=== PATIENT | female | born 1990 | race Caucasian/White ===

== ENCOUNTER 2019-02-10 09:52 | Inpatient (IN) ==
[2019-02-10] MEDS ORDERED: Oxytocin 20 units/ LR 1000 mL 20 UNIT/1,000 ML BAG IVC ONE (10:23)
[2019-02-10] MEDS ORDERED: Famotidine 20 MG/2 ML VIAL IVP ONE (10:23)
[2019-02-10] MEDS ORDERED: Ringers Solution, Lactated 1,000 ML IVC ONE (10:23)
[2019-02-10] MEDS ORDERED: Metoclopramide 10 MG/2 ML VIAL IVP ONE (10:23)
[2019-02-10] MEDS ORDERED: CeFAZolin Premix DUPLEX 2,000 MG/50 ML BAG IVPB ONE (10:23)
[2019-02-10] MEDS ORDERED: Ringers Solution, Lactated 1,000 ML IVC SCH (10:30)
[2019-02-10 10:56] LABS: Basophils % 0.2 %; Eosinophils % 0.4 %; Immature Granulocytes % 0.9 % (0-4); Lymphocytes # 1.7 K/mcL (0.6-4.6); Lymphocytes % 18.8 %; Mean Corpuscular HGB Conc 36.1 g/dL (31.6-35.5); Mean Corpuscular Hemoglobin 31.9 pg (28.0-33.3); Mean Corpuscular Volume 88.2 fL (83.0-100.0); Mean Platelet Volume 10.2 fL (9.4-12.4); Monocytes # 0.8 K/mcL (0.0-1.3); Monocytes % 8.3 %; Neutrophils # 6.5 K/mcL (1.6-8.9); Platelet Count 187 K/mcL (140-400); Red Blood Count 4.08 M/mcL (3.82-4.97); Segmented Neutrophils % 71.4 %; White Blood Count 9.1 K/mcL (4.3-11.1)
[2019-02-10 11:01] LABS: Amphetamine Screen,Urine Negative ng/mL (Cutoff=1000); Barbiturate Screen,Urine Negative ng/mL (Cutoff=200); Benzodiazepines Screen,Urine Negative ng/mL (Cutoff=200); Cannabinoid Screen,Urine Negative ng/mL (Cutoff = 50); Cocaine Screen,Urine Negative ng/mL (Cutoff= 300); Opiate Screen,Urine Negative ng/mL (Cutoff=300); Phencyclidine Screen,Urine Negative ng/mL (Cutoff=25)
[2019-02-10] MEDS ORDERED: Azithromycin 500 MG in 0.9 % Sodium Chloride 250 ML IVPB ONE (11:27)
[2019-02-10] MEDS ORDERED: *HR* HYDROmorphone (PF) 1 MG/ML SYRINGE IVP PRN ×2 (11:44)
[2019-02-10] MEDS ORDERED: Ondansetron 4 MG/2 ML VIAL IVP ONE (11:44)
[2019-02-10] MEDS ORDERED: *HR* Meperidine 25 MG/ML SYRINGE IVP PRN (11:44)
[2019-02-10] MEDS ORDERED: *HR* Promethazine 25 MG/ML VIAL IVP PRN (11:44)
[2019-02-10] MEDS ORDERED: *HR* OxyCODONE Immed Rel 5 MG TABLET PO PRN (11:44)
[2019-02-10] MEDS ORDERED: *HR* FentaNYL (PF) 100 MCG/2 ML VIAL ONE (11:53)
[2019-02-10] MEDS ORDERED: *HR* Morphine Sulfate/PF 10 MG/10 ML AMPUL ONE (11:53)
[2019-02-10] MEDS ORDERED: *HR* Phenylephrine 10 MG/ML VIAL ONE (11:56)
[2019-02-10] MEDS ORDERED: *HR* Oxytocin 10 UNIT/ML VIAL IM ONE ×2 (11:57→13:14)
[2019-02-10] MEDS ORDERED: Sennosides 8.6 MG TABLET PO PRN (16:26)
[2019-02-10] MEDS ORDERED: Simethicone 80 MG TAB.CHEW PO PRN (16:26)
[2019-02-10] MEDS ORDERED: Ondansetron 4 MG/2 ML VIAL IVP PRN (16:26)
[2019-02-10] MEDS ORDERED: Metoclopramide 10 MG/2 ML VIAL IVP PRN (16:26)
[2019-02-10] MEDS: *HR* OxyCODONE Immed Rel 5 MG TABLET PO PRN ×2 (16:48→21:25)
[2019-02-10] MEDS: Ibuprofen 600 MG TABLET PO SCH ×2 (18:03→23:59)
[2019-02-11] MEDS: Oxytocin 20 units/ LR 1000 mL 20 UNIT/1,000 ML BAG IVC SCH (00:26)
[2019-02-11] MEDS ORDERED: Lanolin 7 G OINT...G. TP PRN (02:45)
[2019-02-11] MEDS: Ibuprofen 600 MG TABLET PO SCH ×4 (07:41→23:56)
[2019-02-11] MEDS: Prenatal Vit/FA 1 EACH TABLET PO SCH (07:41)
[2019-02-11 08:08] LABS: Basophils % 0.3 %; Eosinophils % 0.3 %; Hematocrit 35.1 % (35.3-44.9); Immature Granulocytes % 0.6 % (0-4); Lymphocytes # 1.2 K/mcL (0.6-4.6); Lymphocytes % 11.9 %; Mean Corpuscular HGB Conc 34.2 g/dL (31.6-35.5); Mean Corpuscular Hemoglobin 31.8 pg (28.0-33.3); Mean Corpuscular Volume 93.1 fL (83.0-100.0); Mean Platelet Volume 10.1 fL (9.4-12.4); Monocytes # 1.1 K/mcL (0.0-1.3); Monocytes % 10.3 %; Neutrophils # 7.9 K/mcL (1.6-8.9); Platelet Count 170 K/mcL (140-400); Red Blood Count 3.77 M/mcL (3.82-4.97); Red Cell Distribution Width 13.1 % (11.5-14.5); Segmented Neutrophils % 76.6 %; White Blood Count 10.3 K/mcL (4.3-11.1)
[2019-02-11] MEDS: *HR* OxyCODONE Immed Rel 5 MG TABLET PO PRN ×2 (12:40→16:47)
[2019-02-12] MEDS: *HR* OxyCODONE Immed Rel 5 MG TABLET PO PRN ×2 (04:11→08:22)
[2019-02-12 07:45] VITALS: BP 122/89
[2019-02-12] MEDS: Oxytocin 20 units/ LR 1000 mL 20 UNIT/1,000 ML BAG IVC SCH (08:20)
[2019-02-12] MEDS: Ibuprofen 600 MG TABLET PO SCH ×2 (08:20→10:34)
[2019-02-12] MEDS: Prenatal Vit/FA 1 EACH TABLET PO SCH (08:22)
== END 2019-02-12 12:40 | disposition home or self-care (01) | DRG 788 ==
LOC: 1NENULAB 09:52 → 1NENUOBS 16:27
PROVIDERS: ADMIT Obstetrics & Gynecology; ATTEND Obstetrics & Gynecology